=== PATIENT | female | born 1985 | race Caucasian/White ===

== ENCOUNTER → 2018-11-13 | Outpatient (CLI) | payer OTHER ==
[~2018-11-13] MED LIST: ASPIRIN 81M81 MG/TA2 PO; ASPIRIN E.C. 8181 MG PO; FERROUS GL325 MG/TAB PO; LEVOTHROID0.05 MG PO; METRONIDAZOLE500 MG PO; MOTRIN 600600 MG/TAB PO; NORCO 325 MG-51 TAB PO; OCELLA 3 MG-0.01 TAB PO; PERCOCET 325 MG1 TA2 PO; PRENATAL1 TA7 PO; SERTRALINE PO
== END ==
LOC: SUN.DIA 12:50
DX: O24.419 Gestational diabetes mellitus in pregnancy, unspecified control (principal); Z3A.32 32 weeks gestation of pregnancy; E03.9 Hypothyroidism, unspecified
CPT/HCPCS: G0108

== ENCOUNTER → 2018-11-27 | Outpatient (CLI) | payer OTHER | LOC: SUN.DIA 15:50 | DX: O24.419 Gestational diabetes mellitus in pregnancy, unspecified control (principal); Z3A.35 35 weeks gestation of pregnancy | CPT/HCPCS: G0108 ==

== ENCOUNTER 2019-01-10 07:09 | Inpatient (IN) | payer OTHER ==
[2019-01-10] VITALS (18 sets, daily range): BP systolic 111–134; BP diastolic 60–88; PULSE 75–98; TEMP 97.8–98.5
[~2019-01-10] VITALS: Ht 167.6 cm; Wt 95.5 kg
--- NOTE | 2019-01-10 09:00 | NUR ---
Patient arrives ambulatory with spouse for scheduled repeat section. Patient denies contractions, ROM or vaginal bleeding. Reports normal movement. Patient changes into gown, EFM explained and placed. VSS. Plan of care reviewed. Patient denies questions. IV started in LFA, labs obtained and sent. LR infusing per protocol. Consents explained and signed. Assessment completed. Preop shave and prep completed per protocol. [id number] DrGene Roles updated on patient assessment and lab results. No new orders.
[2019-01-10 09:31] LABS: BASO % 0.3 % (0.0-2.0); EOS # 0.1 (0.0-0.7); EOS % 0.8 % (0-4.0); GRAN # 5.8 (1.4-6.5); GRAN % 73.6 % (42.2-75.2); HEMOGLOBIN 11.8 g/dl (12.5-16.0); LYMPH # 1.5 (1.2-3.4); MEAN CELL VOLUME 86 fl (80.0-100.0); MEAN CORPUSCULAR HEMOGLOBIN 29 pg (27.0-31.0); MEAN CORPUSCULAR HGB CONC 33 g/dl (33.0-37.0); MEAN PLATELET VOLUME 12.8 fl (7.4-10.4); MONO # 0.5 (0.1-0.6); MONO % 5.7 % (1.7-9.3); PLATELET COUNT 94 K/mm3 (130-400); RED BLOOD COUNT 4.14 M/mm3 (4.10-5.30); REDCELL DISTRIBUTION WIDTH-CV 14.6 % (11.5-14.5)
[2019-01-10] MEDS ORDERED: FERRETTS I40 MG/15 M PO (09:32)
[2019-01-10 09:34] LABS: HEMATOCRIT 35.6 % (37.0-47.0)
--- NOTE | 2019-01-10 12:20 | NUR ---
Patient meets PACU discharge criteria, transferred to room 210. Updated on plan of care, safety reviewed. Patient denies pain or nausea. Vaginal bleeding WNL, new peripad applied. Will monitor per protocol.
[2019-01-11 00:01] VITALS: BP 115/88; PULSE 76; TEMP 98.2
[2019-01-11 08:07] LABS: BASO % 0.3 % (0.0-2.0); EOS # 0.1 (0.0-0.7); GRAN # 4.5 (1.4-6.5); GRAN % 66.1 % (42.2-75.2); HEMOGLOBIN 10.2 g/dl (12.5-16.0); LYMPH # 1.7 (1.2-3.4); LYMPH % 25.6 % (20.0-51.0); MEAN CELL VOLUME 88 fl (80.0-100.0); MEAN CORPUSCULAR HEMOGLOBIN 29 pg (27.0-31.0); MEAN CORPUSCULAR HGB CONC 33 g/dl (33.0-37.0); MEAN PLATELET VOLUME 12.2 fl (7.4-10.4); MONO # 0.5 (0.1-0.6); MONO % 6.6 % (1.7-9.3); PLATELET COUNT 69 K/mm3 (130-400); RED BLOOD COUNT 3.56 M/mm3 (4.10-5.30); REDCELL DISTRIBUTION WIDTH-CV 14.8 % (11.5-14.5)
[2019-01-11 08:17] VITALS: BP 113/96; PULSE 78; TEMP 97.7
[2019-01-11 08:19] LABS: HEMATOCRIT 31.4 % (37.0-47.0)
[2019-01-11 11:42] VITALS: BP 135/93; PULSE 79
[2019-01-11 16:17] VITALS: BP 129/84; PULSE 79; TEMP 98.3
[2019-01-11 19:30] VITALS: BP 139/81; PULSE 90; TEMP 98.4
[2019-01-12] MEDS ORDERED: MOTRIN 600600 MG/TAB PO (08:01)
[2019-01-12] MEDS ORDERED: PERCOCET 325 MG1 TA2 PO (08:02)
[2019-01-12 08:13] VITALS: BP 134/88; PULSE 82; TEMP 97.6
== END 2019-01-12 10:00 | disposition home or self-care (01) | DRG 786 ==
LOC: OB 07:09
PROVIDERS: ADMIT Obstetrics & Gynecology
PROC: 10D00Z1 Extraction of Products of Conception, Low, Open Approach (ICD-10-PCS; principal; 2019-01-10)
DX: O34.212 Maternal care for vertical scar from previous cesarean delivery (principal); O60.14X0 Preterm labor third trimester with preterm delivery third trimester, not applicable or unspecified; O99.12 Other diseases of the blood and blood-forming organs and certain disorders involving the immune mechanism complicating childbirth; D69.59 Other secondary thrombocytopenia; O24.420 Gestational diabetes mellitus in childbirth, diet controlled; Z3A.36 36 weeks gestation of pregnancy; Z37.0 Single live birth
CPT/HCPCS: J0690; J1885; J2370; J2405; J2590; J2791; J3010; J7120

== ENCOUNTER → 2021-06-27 | Outpatient (CLI) | payer OTHER ==
[~2021-06-27] MED LIST changes: +FERRETTS I40 MG/15 M PO
== END ==
LOC: ZCOL.LAB 16:37
DX: U07.1 COVID-19 (principal)